=== PATIENT | male | born 1965 | race Caucasian/White ===

== ENCOUNTER 2021-07-10 16:19 | Emergency (ER) | payer OTHER ==
[~2021-07-10] VITALS: Ht 175.3 cm; Wt 99.8 kg
[2021-07-10] MEDS ORDERED: ZOLOFT20 MG/1 ML PO (16:25)
[2021-07-10 16:51] LABS: URINE BILIRUBIN NEGATIVE (Negative); URINE BLOOD TRACE (Negative); URINE CLARITY CLEAR; URINE COLOR YELLOW; URINE GLUCOSE-RANDOM NEGATIVE (Negative); URINE KETONES NEGATIVE (Negative); URINE LEUKOCYTES NEGATIVE (Negative); URINE NITRITE NEGATIVE (Negative); URINE PROTEIN NEGATIVE (Negative)
[2021-07-10 17:01] LABS: AMP/METHAMP POSITIVE (Negative); BARBITURATES Negative (Negative); BENZODIAZEPINES Negative (Negative); COCAINE Negative (Negative); METHADONE Negative (Negative); OPIATES Negative (Negative); PCP Negative (Negative); THC Negative (Negative)
[2021-07-10 17:39] LABS: HEMATOCRIT 45.6 % (42.0-52.0); HEMOGLOBIN 15.5 gm/dL (14.0-18.0); MCH 31.9 pg (26.0-34.0); MCHC 33.9 g/dL (28.0-37.0); MCV 94.1 fL (80.0-100.0); MPV 9.8 fl. (7.2-11.1); NUCLEATED RBCS 0 /100WBC; PLATELET COUNT* 148 thou/uL (150-400); RBC 4.85 mil/uL (4.50-6.00); WBC 12.3 thou/uL (4.0-11.0)
[2021-07-10 17:54] LABS: CALCIUM 8.4 mg/dL (8.5-10.1); CREATININE 1.1 mg/dL (0.6-1.3); POTASSIUM 3.5 mmol/L (3.5-5.1)
[2021-07-10 17:59] LABS: ALBUMIN 3.6 g/dL (3.4-5.0); TOTAL BILIRUBIN 1.3 mg/dL (<0.1-1.0); TOTAL PROTEIN 6.9 g/dL (6.4-8.2)
[2021-07-10 18:00] LABS: ABSOLUTE LYMPHOCYTES 0.6 thou/uL (0.8-5.3); ABSOLUTE MONOCYTES 0.9 thou/uL (0.0-1.2); ABSOLUTE NEUTROPHILS 10.8 thou/uL (1.6-8.1)
[2021-07-10 18:01] LABS: PLATELET ESTIMATE ADEQUATE
[2021-07-10 20:16] VITALS: BP 160/84
--- NOTE | 2021-07-11 16:18 | EKG ---
[place] [address] ELECTROCARDIOGRAM REPORT Name: REBECACHONG Aleksandar Room: [facility] ([place], [place])#: [id number] Admission: 07/10/21 Attend Phys: Discharge: 07/10/21 Date of : 63 Date of Service: 07/10/211631 Report #: [id number] THIS REPORT FOR: //name// [facility] ED Test Date: 2021-07-10 Test Time: 16:32:37 Pat Name: REBECA SCHWARZ Department: Patient ID: SMAMO- Room: Gender: [employer] Machine Operator: GRIMM : 1965 Requested By: Breezy Jack Order Number: [id number] MD: Carmelo Albarado Measurements Intervals [place] Rate: 94 P: 38 [place]: 182 QRS: 38 QRSD: 90 T: 31 QT: 369 QTc: 462 Interpretive Statements Sinus rhythm Probable left atrial enlargement No previous ECG available for comparison Electronically Signed On 07-11-2021 16:17:58 MOGUL OPERATOR by Carmelo Albarado [email or web address] <ELECTRONICALLY SIGNED> By: Carmelo Albarado MD, [facility] 07/11/21 1617 31 31 Carmelo Albarado MD, FACC /EPI
== END 2021-07-10 20:16 | disposition home or self-care (01) ==
LOC: M.ERS 16:19
PROVIDERS: Physician Assistant
DX: R56.9 Unspecified convulsions (principal); R11.2 Nausea with vomiting, unspecified; F15.10 Other stimulant abuse, uncomplicated; Z79.899 Other long term (current) drug therapy